=== PATIENT | male | born 1965 | race African-American/Black ===

== ENCOUNTER 2018-07-06 06:00 | Day surgery (SDC) | payer OTHER ==
[2018-06-27 15:18] VITALS: BMI 25.8
[2018-07-06] MEDS ORDERED: DEXMEDETOMIDINE HCL 200 MCG/2 ML ML IVPB ONE (07:17)
[2018-07-06] MEDS ORDERED: MIDAZOLAM HCL 2 MG/2 ML SINGLE DOSE VIAL ONE (07:18)
[2018-07-06] MEDS ORDERED: LIDOCAINE HCL 2% (20ML MULTI-DOSE VIAL) NR ONE (07:34)
[2018-07-06] MEDS ORDERED: BUPIVACAINE HCL/PF 0.5% (5MG/ML) 10 ML VIAL ONE (07:34)
[2018-07-06] MEDS ORDERED: TRIAMCINOLONE ACET 40MG/1ML VIAL ONE (07:34)
[2018-07-06] MEDS ORDERED: SUCCINYLCHOLINE CHLORIDE 200 MG/10 ML VIAL ONE (07:41)
[2018-07-06] MEDS ORDERED: PROPOFOL 20 ML ONE ×2 (07:41)
[2018-07-06] MEDS ORDERED: ONDANSETRON 4 MG/2 ML VIAL ONE (07:49)
[2018-07-06] MEDS ORDERED: DEXAMETHASONE SOD PHOSPHATE 4 MG/1 ML VIAL ONE (07:49)
[2018-07-06] MEDS ORDERED: ceFAZolin SODIUM 1 GM VIAL ONE (07:49)
[2018-07-06] MEDS ORDERED: LIDOCAINE HCL 2% (50ML VIAL) INF ONE (08:00)
[2018-07-06] MEDS ORDERED: BUPIVACAINE HCL/PF (5 MG/ML) 30 ML VIAL IJ ONE ×2 (08:00)
[2018-07-06] MEDS ORDERED: KETOROLAC TROMETHAMINE 30 MG/1 ML VIAL ONE (08:18)
[2018-07-06] MEDS ORDERED: TRIAMCINOLONE ACETONIDE 40 MG/ML 10 ML VIAL IJ ONE (08:35)
[2018-07-06 10:02] VITALS: PULSE 62; TEMP 97.6
[2018-07-06 10:26] VITALS: BP 100/74
--- NOTE | 2018-07-06 10:39 | OP ---
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 SURGEON: Gus Charles DPM BELT WEAVER: Stepan. PROCEDURE: Excision of neuroma, 2nd and 3rd interspaces, right foot. ANESTHESIA: Local with IV sedation PROCEDURE IS FOLLOWS: The patient was prepped and draped in the usual sterile manner, and with IV sedation in place, local anesthesia was administered. Following the administration of anesthesia, attention was directed to the area between the 2nd and 3rd interspaces which overlay the 3rd metatarsal. A curvilinear incision was performed. Incision was carried down through the subcutaneous, carefully using Bovie with bleeders as needed. The dissection was carried gently to the 3rd interspace first, where it was carried down through the deep transverse intermetatarsal ligament and the neuroma was identified and removed with all its extensions, and noted to be removed intact, and the stump areas were cauterized by Bovie. Gently through the same incision, but moving over towards the 2nd interspace, the same procedure that was performed on the 3rd interspace was then performed on the 2nd interspace. Following these procedures, the wounds were flushed with copious amounts of sterile saline. The wound was closed deep closure with 3-0 Vicryl, subcutaneous with 3-0 Vicryl, and skin with horizontal mattress sutures of 4-0 nylon. A postoperative anesthetic block and Kenalog injection were applied. Sterile bandage was applied with Betadine-soaked Adaptic, gauze, ABD pads, 2 Klings, and Coban. The patient tolerated the procedure well. There were no complications. The patient was seen in the recovery room in stable and satisfactory condition. LAKISHA AMAYA/[id number]
[2018-07-06] MEDS ORDERED: ONDANSETRON 4 MG/2 ML VIAL IVPUSH PRN (13:42)
[2018-07-06] MEDS ORDERED: oxyCODONE HCL 5 MG TABLET PO PRN (13:42)
[2018-07-06] MEDS ORDERED: LACTATED RINGERS SOLUTION 1,000 ML IV SCH (13:45)
--- NOTE | 2018-07-13 12:11 | PATH ---
Surgical Pathology Report Patient Name: BRANDY ALLISON [facility]. Rec. #: [id number] /Age/Gender: 1965 (Age: 53) / M Account: [id number] Location: [facility] Taken: 07/06/2018 Received: 07/06/2018 Reported: 07/13/2018 Physicians: Gus Charles M.D. Specimen(s) Received NEUROMA OF SECOND AND THIRD INTERSPACE RIGHT FOOT Clinical History Neuroma right foot x2 Final Diagnosis NEUROMA, SECOND AND THIRD INTERSPACE, RIGHT FOOT, EXCISION: NEUROMA. Electronically Signed Anne Marie Gallegos M.D. Gross Description Received in formalin labeled "neuroma second and third right foot," are 2 coleman-yellow portions of soft tissue measuring 0.5 x 0.6 x 0.3 cm and 1.8 x 1.2 x 0.3 cm. The specimens are submitted in toto in one cassette. /07/06/2018 saudi07/06/2018
== END 2018-07-06 10:20 | disposition home or self-care (01) ==
LOC: FASU 06:00
PROVIDERS: ATTEND Podiatrist Foot Surgery
PROC: 01BG0ZZ Excision of Tibial Nerve, Open Approach (ICD-10-PCS; principal; 2018-07-06 07:30)
DX: G57.61 Lesion of plantar nerve, right lower limb (principal)
CPT/HCPCS: 88304-TC